=== PATIENT | male | born 1955 | race Caucasian/White ===

== ENCOUNTER 2018-09-12 23:10 | Inpatient (IN) | payer MEDICARE ==
[~2018-09-12] VITALS: Ht 185.4 cm; Wt 121.3 kg
[2018-09-12] MEDS ORDERED: IV NORMAL SALINE 1,000ML 1,000 ML IV SCH (23:30)
[2018-09-12] MEDS ORDERED: ONDANSETRON PF 4 MG/2 ML VIAL. IV ONE (23:30)
[2018-09-13] MEDS ORDERED: atenolol (00:53)
[2018-09-13] MEDS ORDERED: glyburide (00:53)
[2018-09-13] MEDS ORDERED: multivitamin (00:53)
[2018-09-13] MEDS ORDERED: allopurinol (00:53)
[2018-09-13] MEDS ORDERED: trulicity (00:53)
[2018-09-13] MEDS ORDERED: metformin (00:53)
[2018-09-13] MEDS ORDERED: vitamin D3 (00:53)
[2018-09-13] MEDS ORDERED: Jardiance (00:53)
[2018-09-13] MEDS ORDERED: aspirin (00:53)
[2018-09-13] MEDS ORDERED: fish oil (00:53)
[2018-09-13] MEDS ORDERED: [UNRECOGNIZED DRUG - OTHER] (00:53)
[2018-09-13] MEDS: HYDROmorphone PF 1 MG/ML DISP.SYRIN IV/SQ PRN ×3 (01:10→02:45)
[2018-09-13 01:13] LABS: BASO % 0 % (0-3); EOS # 0.1 x10^3/uL (0.0-0.7); EOS % 1 % (0-3); HEMATOCRIT 50.4 % (39.0-53.0); HEMOGLOBIN 16.5 g/dL (13.0-17.5); LYMPH # 1.6 x10^3/uL (1.0-4.8); LYMPH % 14 % (24-48); MEAN CORPUSCULAR HEMOGLOBIN 31 pg (25-35); MEAN CORPUSCULAR HGB CONC 33 g/dL (31-37); MEAN CORPUSCULAR VOLUME 94 fL (79-100); MONO # 0.8 x10^3/uL (0.0-1.1); MONO % 7 % (0-9); NEUT # 9.1 x10^3uL (1.8-7.7); NEUT % 79 % (31-73); PLATELET COUNT 201 x10^3/uL (140-400); RED BLOOD COUNT 5.39 x10^6/uL (4.30-5.70); RED CELL DISTRIBUTION WIDTH 16.4 % (11.5-14.5); WHITE BLOOD COUNT 11.5 x10^3/uL (4.0-11.0)
[2018-09-13] MEDS ORDERED: ONDANSETRON PF 4 MG/2 ML VIAL. IV ONE (01:15)
[2018-09-13 01:25] LABS: ALBUMIN/GLOBULIN RATIO 1.2 (1.0-1.7); CALCIUM 9.7 mg/dL (8.5-10.1); CREATININE 1.6 mg/dL (0.7-1.3); GFR 43.6; POTASSIUM 3.9 mmol/L (3.5-5.1); TOTAL BILIRUBIN 1.3 mg/dL (0.2-1.0); TOTAL PROTEIN 7.3 g/dL (6.4-8.2)
[2018-09-13] MEDS ORDERED: diphenhydrAMINE 50 MG/ML VIAL IVP ONE (02:45)
[2018-09-13] MEDS ORDERED: METOCLOPRAMIDE HCL 10 MG/2 ML VIAL. IV ONE (02:45)
[2018-09-13 03:10] LABS: BACTERIA,URINE 0 /HPF (0-FEW); BILIRUBIN,URINE NEG (NEG); CLARITY,URINE CLEAR; COLOR,URINE YELLOW; GLUCOSE,URINE >=1000 mg/dL (NEG); NITRITE,URINE NEG (NEG); RBC,URINE 0 /HPF (0-2); SQUAMOUS EPITHELIAL CELL,UR OCC /LPF; UROBILINOGEN,URINE 0.2 mg/dL (0.2 mg/dL); WBC,URINE RARE /HPF (0-4)
--- NOTE | 2018-09-13 03:32 | RAD ---
INDICATION: Abdominal pain with vomiting COMPARISON: None. TECHNIQUE: Axial CT images obtained through the abdomen and pelvis without contrast. One or more of the following individualized dose reduction techniques were utilized for this examination: 1. Automated exposure control; 2. Adjustment of the mA and/or kV according to patient size; 3. Use of iterative reconstruction technique. FINDINGS: Mild basilar airspace opacities. Coronary artery calcific atherosclerosis. Small hiatal hernia. Could also be from mild distention distal esophagus. Moderate calcific atherosclerosis. Fat-containing left inguinal hernia. Liver is low density. High density material within the gallbladder. Edema at pancreas with some adjacent free fluid. There is also wall thickening of duodenum with adjacent edema. Spleen prominent in size. No left-sided hydronephrosis. Suspected low-density lesion of the left kidney which is not well characterized on this noncontrast exam. Urinary bladder is somewhat distended at time of exam. No right-sided hydronephrosis. Small exophytic lesion suspected at right kidney measuring up to about 6 mm. Not well characterized on this noncontrast exam. Degenerative changes the spine with multilevel central canal and neural foraminal stenosis. Colonic diverticulosis. No definite periappendiceal inflammation. IMPRESSION: 1. Edema and free fluid adjacent to the pancreas which can be seen with pancreatitis. 2. There is also edema and wall thickening at the duodenum. This could be secondary to secondary inflammation from pancreatitis but superimposed duodenitis or duodenal ulcer is possible. There is free fluid adjacent to the pancreas and the duodenum. 3. Liver is low density. Nonspecific but can be seen with fatty infiltration. 4. High density material within the gallbladder which could be from stones or sludge. 5. Couple of bilateral renal lesions which are not well characterized on noncontrast imaging. Nonemergent ultrasound, CT or MRI renal protocol could better evaluate if further information is desired. Electronically signed by: Ed Tabares MD (09/13/2018 3:28 AM) [facility]
[2018-09-13] MEDS ORDERED: PIPERACILLIN/TAZOBACTAM 4.5 GM VIAL IV ONE (03:44)
[2018-09-13] MEDS ORDERED: IV NORMAL SALINE 50ML 50 ML ONE (03:44)
[2018-09-13] MEDS ORDERED: PIPERACILLIN/TAZOBACTAM 4.5 GM in IV NORMAL SALINE 50ML 50 ML IV ONE (03:45)
--- NOTE | 2018-09-13 03:45 | PHYS DOC ---
Past History Past Medical History: CAD, Diabetes, High Cholesterol, Hypertension, [place], Other Past Surgical History: Other Alcohol Use: Occasionally Drug Use: None Adult General Chief Complaint Chief Complaint: ABDOMINAL PAIN HPI HPI Patient is a 63-year-old male who presents with complaint of acute onset of upper abdominal pain that started approximately 2 hours prior to arrival. Patient rates his pain to be a 9 out of 10. He indicates that he has been naus eated with vomiting. He denies any diarrhea. Patient denies any radiation of the pain. He states that the pain is worsened with movement and palpation of his abdomen. Patient states that nothing improves his pain. He states that he has never had pain like this before.[] Review of Systems Review of Systems Constitutional: Denies fever or chills [] Respiratory: Denies cough or shortness of breath [] Cardiovascular: No additional information not addressed in HPI [] GI: Complains of upper abdominal pain with nausea and vomiting. Denies diarrhea [] Musculoskeletal: Denies back pain or joint pain [] Neurologic: Denies headache, focal weakness or sensory changes [] All other systems were reviewed and found to be within normal limits, except as documented in this note. Current Medications Current Medications Current Medications Medications (Trade) Dose Ordered Sig/Brody Start Time Stop Time Status Last Admin Dose Admin Diphenhydramine HCl (Benadryl) 25 mg 1X ONCE 09/13/18 02:45 09/13/18 03:33 DC 09/13/18 02:52 25 MG Hydromorphone HCl (Dilaudid) 0.5 mg PRN Q15MIN PRN 09/12/18 23:30 09/13/18 23:29 09/13/18 02:45 0.5 MG Metoclopramide HCl (Reglan Vial) 10 mg 1X ONCE 09/13/18 02:45 09/13/18 03:33 DC 09/13/18 02:44 10 MG Ondansetron HCl (Zofran) 4 mg 1X ONCE 09/13/18 01:15 09/13/18 01:42 DC 09/13/18 01:09 4 MG Piperacillin Sod/ Tazobactam Sod 4.5 gm/Sodium Chloride 50 ml @ 100 mls/hr 1X ONCE 09/13/18 03:45 09/13/18 04:14 UNV Sodium Chloride 1,000 ml @ 1,000 mls/hr Q1H 09/12/18 23:30 09/13/18 00:43 DC 09/13/18 00:00 1,000 MLS/HR Allergies Allergies Allergies Coded Allergies Type Severity Reaction Last Updated Verified No Known Drug Allergies 09/13/18 No Physical Exam Physical Exam Constitutional: Well developed, well nourished, in mild distress, non-toxic appearance. [] HENT: Normocephalic, atraumatic, bilateral external ears normal, oropharynx moist, no oral exudates, nose normal. [] Eyes: PERRLA, EOMI, conjunctiva normal, no discharge. [] Neck: Normal range of motion, no tenderness, supple, no stridor. [] Cardiovascular:Heart rate regular rhythm, no murmur [] Lungs & Thorax: Bilateral breath sounds clear to auscultation [] Abdomen: Bowel sounds normal, soft, with significant upper abdominal tenderness. [] Skin: Warm, dry, no erythema, no rash. [] Extremities: No tenderness, no cyanosis, no clubbing, ROM intact. [] Neurologic: Alert and oriented X 3, no focal deficits noted. [] Current Patient Data Vital Signs Vital Signs Date Time Temp Pulse Resp B/P (MAP) Pulse Ox O2 Delivery O2 Flow Rate FiO2 09/12/18 23:15 97.9 93 22 94 Room Air Lab Results Laboratory Tests Test 09/12/18 23:55 09/13/18 02:40 White Blood Count 11.5 x10^3/uL (4.0-11.0) H Red Blood Count 5.39 x10^6/uL (4.30-5.70) Hemoglobin 16.5 g/dL (13.0-17.5) Hematocrit 50.4 % (39.0-53.0) Mean Corpuscular Volume 94 fL (79-100) Mean Corpuscular Hemoglobin 31 pg (25-35) Mean Corpuscular Hemoglobin Concent 33 g/dL (31-37) Red Cell Distribution Width 16.4 % (11.5-14.5) H Platelet Count 201 x10^3/uL (140-400) Neutrophils (%) (Auto) 79 % (31-73) H Lymphocytes (%) (Auto) 14 % (24-48) L Monocytes (%) (Auto) 7 % (0-9) Eosinophils (%) (Auto) 1 % (0-3) Basophils (%) (Auto) 0 % (0-3) Neutrophils # (Auto) 9.1 x10^3uL (1.8-7.7) H Lymphocytes # (Auto) 1.6 x10^3/uL (1.0-4.8) Monocytes # (Auto) 0.8 x10^3/uL (0.0-1.1) Eosinophils # (Auto) 0.1 x10^3/uL (0.0-0.7) Basophils # (Auto) 0.0 x10^3/uL (0.0-0.2) Sodium Level 142 mmol/L (136-145) Potassium Level 3.9 mmol/L (3.5-5.1) Chloride Level 103 mmol/L (98-107) Carbon Dioxide Level 28 mmol/L (21-32) Anion Gap 11 (6-14) Blood Urea Nitrogen 28 mg/dL (8-26) H Creatinine 1.6 mg/dL (0.7-1.3) H Estimated GFR (Cockcroft-Gault) 43.6 BUN/Creatinine Ratio 18 (6-20) Glucose Level 187 mg/dL (70-99) H Calcium Level 9.7 mg/dL (8.5-10.1) Total Bilirubin 1.3 mg/dL (0.2-1.0) H Aspartate Amino Transferase (AST) 364 U/L (15-37) H Alanine Aminotransferase (ALT) 227 U/L (16-63) H Alkaline Phosphatase 72 U/L (46-116) Troponin I Quantitative < 0.017 ng/mL (0-0.055) Total Protein 7.3 g/dL (6.4-8.2) Albumin 4.0 g/dL (3.4-5.0) Albumin/Globulin Ratio 1.2 (1.0-1.7) Lipase 49951 U/L (73-393) H Urine Collection Type Void Urine Color Yellow Urine Clarity Clear Urine pH 5.0 Urine Specific [place] 1.010 Urine Protein Neg (NEG-TRACE) Urine Glucose (UA) >=1000 mg/dL (NEG) Urine Ketones (Stick) Neg mg/dL (NEG) Urine Blood Neg (NEG) Urine Nitrite Neg (NEG) Urine Bilirubin Neg (NEG) Urine Urobilinogen Dipstick 0.2 mg/dL (0.2 mg/dL) Urine Leukocyte Esterase Neg (NEG) Urine RBC 0 /HPF (0-2) Urine WBC Rare /HPF (0-4) Urine Squamous Epithelial Cells Occ /LPF Urine Bacteria 0 /HPF (0-FEW) EKG EKG [] Radiology/Procedures Radiology/Procedures [] Impressions: PROCEDURE: CT ABDOMEN PELVIS WO CONTRAST INDICATION: Abdominal pain with vomiting COMPARISON: None. TECHNIQUE: Axial CT images obtained through the abdomen and pelvis without contrast. One or more of the following individualized dose reduction techniques were utilized for this examination: 1. Automated exposure control; 2. Adjustment of the mA and/or kV according to patient size; 3. Use of iterative reconstruction technique. FINDINGS: Mild basilar airspace opacities. Coronary artery calcific atherosclerosis. Small hiatal hernia. Could also be from mild distention distal esophagus. Moderate calcific atherosclerosis. Fat-containing left inguinal hernia. Liver is low density. High density material within the gallbladder. Edema at pancreas with some adjacent free fluid. There is also wall thickening of duodenum with adjacent edema. Spleen prominent in size. No left-sided hydronephrosis. Suspected low-density lesion of the left kidney which is not well characterized on this noncontrast exam. Urinary bladder is somewhat distended at time of exam. No right-sided hydronephrosis. Small exophytic lesion suspected at right kidney measuring up to about 6 mm. Not well characterized on this noncontrast exam. Degenerative changes the spine with multilevel central canal and neural foraminal stenosis. Colonic diverticulosis. No definite periappendiceal inflammation. IMPRESSION: 1. Edema and free fluid adjacent to the pancreas which can be seen with pancreatitis. 2. There is also edema and wall thickening at the duodenum. This could be secondary to secondary inflammation from pancreatitis but superimposed duodenitis or duodenal ulcer is possible. There is free fluid adjacent to the pancreas and the duodenum. 3. Liver is low density. Nonspecific but can be seen with fatty infiltration. 4. High density material within the gallbladder which could be from stones or sludge. 5. Couple of bilateral renal lesions which are not well characterized on noncontrast imaging. Nonemergent ultrasound, CT or MRI renal protocol could better evaluate if further information is desired. Electronically signed by: Ed Tabares MD (09/13/2018 3:28 AM) [facility] Course & Med Decision Making Course & Med Decision Making Pertinent Labs and Imaging studies reviewed. (See chart for details) [] Dragon Disclaimer Dragon Disclaimer This electronic medical record was generated, in whole or in part, using a voice recognition dictation system. Departure Departure: Impression: Primary Impression: Acute pancreatitis Disposition: ADMITTED INPATIENT Admitting Physician: Nick Escobedo Condition: IMPROVED Referrals: SHAHIDA LANG MD (PCP) Problem Qualifiers Primary Impression: Acute pancreatitis Pancreatitis type: unspecified pancreatitis type Acute pancreatitis complication: unspecified Qualified Codes: K85.90 - Acute pancreatitis without necrosis or infection, unspecified NATHALIE STONE Jr. DO Sep 13, 2018 03:45
[2018-09-13] MEDS: IV NORMAL SALINE 1,000ML 1,000 ML IV SCH ×3 (05:00→18:18)
[2018-09-13 05:11] VITALS: BP 131/78
[2018-09-13] MEDS ORDERED: FENO160T PO (05:38)
[2018-09-13] MEDS ORDERED: ATEN50TA PO (05:38)
[2018-09-13] MEDS ORDERED: ATOR10TA60 PO (05:38)
[2018-09-13] MEDS ORDERED: OMEP40CA5 PO (05:38)
[2018-09-13] MEDS ORDERED: EMPA10TA PO (05:38)
[2018-09-13] MEDS ORDERED: DULA1.5P SQ (05:38)
[2018-09-13] MEDS ORDERED: GLIM2TAB2 PO (05:38)
[2018-09-13] MEDS ORDERED: ASPI-630 PO (05:38)
[2018-09-13] MEDS ORDERED: ALLO300T (05:38)
[2018-09-13] MEDS ORDERED: METF500T9 PO (05:38)
[2018-09-13] MEDS: HYDROmorphone PF 1 MG/ML DISP.SYRIN IV PRN ×5 (06:20→19:39)
--- NOTE | 2018-09-13 06:30 | EKG ---
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
[2018-09-13 06:41] LABS: BASO % 0 % (0-3); EOS % 0 % (0-3); HEMOGLOBIN 15.9 g/dL (13.0-17.5); LYMPH # 0.4 x10^3/uL (1.0-4.8); LYMPH % 4 % (24-48); MEAN CORPUSCULAR HEMOGLOBIN 31 pg (25-35); MEAN CORPUSCULAR HGB CONC 33 g/dL (31-37); MEAN CORPUSCULAR VOLUME 93 fL (79-100); MONO # 0.6 x10^3/uL (0.0-1.1); MONO % 6 % (0-9); NEUT # 9.2 x10^3uL (1.8-7.7); NEUT % 90 % (31-73); PLATELET COUNT 176 x10^3/uL (140-400); RED BLOOD COUNT 5.16 x10^6/uL (4.30-5.70); RED CELL DISTRIBUTION WIDTH 15.9 % (11.5-14.5); WHITE BLOOD COUNT 10.3 x10^3/uL (4.0-11.0)
[2018-09-13 06:46] LABS: ALBUMIN 3.7 g/dL (3.4-5.0); ALBUMIN/GLOBULIN RATIO 1.3 (1.0-1.7); CALCIUM 8.7 mg/dL (8.5-10.1); CREATININE 1.6 mg/dL (0.7-1.3); GFR 43.6; POTASSIUM 4.9 mmol/L (3.5-5.1); TOTAL BILIRUBIN 1.1 mg/dL (0.2-1.0); TOTAL PROTEIN 6.5 g/dL (6.4-8.2)
[2018-09-13] MEDS: ONDANSETRON PF 4 MG/2 ML VIAL. IV PRN ×2 (10:10→15:48)
--- NOTE | 2018-09-13 12:32 | RAD ---
EXAM: ABDOMINAL ULTRASOUND. HISTORY: Pancreatitis. COMPARISON: CT 09/13/2018. FINDINGS: Sonographic evaluation of the abdomen was performed. The liver is enlarged. Diffuse hepatic steatosis is moderate to severe. No focal lesions are seen. The spleen measures 16.7 cm. Small gallstones noted on CT are not well seen. There is no pericholecystic fluid or gallbladder wall thickening. A 4 mm polyp is likely benign at this small size. There is no sonographic Esteban sign. The common duct measures 5 mm. The pancreas is not well visualized. No surrounding fluid collection is identified. The right kidney measures 11.1 cm. Cortical thickness and echogenicity are preserved. There is no hydronephrosis. The left kidney measures 11.9 cm. Cortical thickness and echogenicity are preserved. There is no hydronephrosis. A hypoechoic nodule medially in measures 2.0 x 1.6 cm. A cyst at the upper pole measures 1.2 x 0.6 cm. Another in the interpolar region measures 1.3 x 1.0 cm. The visualized portions of the abdominal aorta and inferior vena cava are grossly patent and normal in caliber. IMPRESSION: 1. The pancreas is not well visualized. No surrounding fluid collection is identified. 2. Cholelithiasis is not well seen sonographically. No biliary dilatation. 3. Diffuse hepatic steatosis. 4. Moderate splenomegaly. Electronically signed by: Bigg Pollock MD (09/13/2018 12:29 PM) [facility]
[2018-09-13 13:05] VITALS: BP 125/82
[2018-09-13] MEDS: METOCLOPRAMIDE HCL 10 MG/2 ML VIAL. IV SCH ×2 (13:13→18:22)
[2018-09-13] MEDS: PIPERACILLIN/TAZOBACTAM 2.25 GM in IV NORMAL SALINE 50ML 50 ML IV SCH ×2 (15:45→22:05)
[2018-09-13 16:34] VITALS: BP 137/85
--- NOTE | 2018-09-13 17:29 | HP ---
ADMIT DATE: 09/13/2018 HISTORY OF PRESENT ILLNESS: The patient is a 63-year-old male patient, who came to the Emergency Room of [facility] complaining of abdominal that started acutely in the epigastric area, started approximately 2 hours prior to arrival. The patient rated his pain to be 9/10, indicated that has been nauseous and vomiting. He denied any diarrhea. Denied any radiation of the pain. He states that the pain is worsened with movement and palpation of his abdomen and nothing has improved his pain. He has never had symptoms like this before. He was extensively investigated in the Emergency Room and was found to have markedly elevated lipase. He has had a CT scan of the abdomen, which showed edema and free fluid adjacent to the pancreas, which can be seen with pancreatitis. There is also edema and wall thickening of the duodenum. This could be secondary to inflammation from pancreatitis, but superimposed duodenitis and duodenal ulcer is possible, there is free fluid adjacent to the pancreas and duodenum. Liver is low density, nonspecific, can be seen with fatty infiltration, high density material within the gallbladder, which could be from stones or sludge, a couple of bilateral renal lesions, which are not well characterized on noncontrast imaging. Nonemergent ultrasound, CT or MRI, renal protocol could later evaluate if further information is desired. His laboratory work showed that he has mild leukocytosis and his serum lipase was 50,790. His BUN is 28, creatinine 1.6, and his total bilirubin, AST and ALT are elevated, although his alkaline phosphatase is normal. His urinalysis showed marked glucosuria, but otherwise unremarkable. The patient was admitted with acute pancreatitis, started on IV fluid, n.p.o. and pain medication as well as antiemetic. When questioned the patient further, he stated that he ate [employer] and drank one can of beer. PAST MEDICAL HISTORY: Significant for type 2 diabetes mellitus, hypertension, hyperlipidemia, coronary artery disease, status post stent deployment about 10 years ago. He is known to have atrial fibrillation, chronic kidney disease, fatty liver, diverticulosis, history of DVT, and pulmonary emboli as well as gout. He is also known to have obstructive sleep apnea, on CPAP. PAST SURGICAL HISTORY: Significant for bilateral total knee arthroplasty, periumbilical hernia repair, right inguinal hernia repair, right eye cataract extraction. He underwent also esophagogastroduodenoscopy and colonoscopy. ALLERGIES: He has no known drug allergies. MEDICATIONS: He is currently on fenofibrate 160 mg daily, atorvastatin calcium 10 mg at bedtime, atenolol 50 mg twice a day, aspirin 81 mg once a day, proton pump inhibitor, omeprazole 40 mg daily, metformin 500 mg 4 times a day, Trulicity 1.5 mg subcu once a week, Jardiance 10 mg daily, glimepiride 2 mg twice a day, allopurinol 300 mg once a day. FAMILY HISTORY: He has 2 brothers, 1 older for the kidney and pancreas transplant list. His younger brother has atrial fibrillation. One sister, younger and has COPD. His father at the age of 73 secondary to sepsis. He has end-stage renal failure and was on hemodialysis. His mother is still alive at age of 87 and has Alzheimer's disease. SOCIAL HISTORY: He is , has adult daughter and a son. He quit smoking when he was 38 years old, about 25 years ago. He drinks 1 beer every other week according to him. 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 REVIEW OF SYSTEMS: The patient denied any blurring of vision, cataract, glaucoma or macular degeneration. Denied any earache, tinnitus or sensorineural deafness. Denied any nosebleeds, stuffy nose or postnasal drip. Denied any sore throat, sore tongue, toothache, hoarseness of voice or difficulty swallowing. Did complain obviously of nausea, vomiting, but denied any diarrhea or constipation. Denied any hematemesis, melena or hematochezia. Denied any dysuria, frequency or hematuria. Denied any nocturia. Denied any chest pain, shortness of breath, orthopnea, paroxysmal nocturnal dyspnea. Denied any cough, phlegm or hemoptysis. Denied any chills, rigors, or fever. Denied any dizziness, lightheadedness, or vertigo. PHYSICAL EXAMINATION: GENERAL: On arrival to the Emergency Room, the patient was obviously in pain, but there was no pallor, jaundice, cyanosis, or thyromegaly. No jugular venous distension. No lower limb edema. VITAL SIGNS: His heart rate was 93, blood pressure was 140/87, temperature was 97.9, respiratory rate 22, and oxygen saturation was 94%. HEAD, EYES, EARS, NOSE, AND THROAT: Showed normocephalic, atraumatic. NECK: Supple. HEART: Showed normal first and second heart sounds. No gallop, rub or murmur. CHEST: Clear to auscultation. No crepitation or rhonchi. ABDOMEN: Distended, soft, nontender. No guarding or rigidity. No organomegaly. All hernial orifices intact. Bowel sounds normal. He has marked tenderness mostly in the epigastric and right upper quadrant, but there is no guarding or rigidity. No organomegaly. All hernial orifices intact. Bowel sounds normal. NEUROLOGIC: He is awake, alert, responding appropriately. All his cranial nerves are intact. He moves extremities without difficulty. LABORATORY DATA: His lab work showed that his white cell count was 11,500, hemoglobin 16.5, hematocrit 50, MCV 94 and platelet count of 201,000. His serum sodium is 142, potassium 3.9, chloride 103, bicarbonate 28, anion gap of 11, BUN 28, creatinine 1.6. Estimated GFR was 43 mL per minute, his glucose 187, calcium was 9.7. Total bilirubin, AST, ALT elevated. Alkaline phosphatase was normal. His total protein was 7.3, albumin 4. Lipase was 50,790. We did repeat his lab work this morning and it showed his bilirubin is slightly down at 1.1. His AST and ALT are trending down. His lipase was 11,190. Urinalysis showed the urine was yellow, clear with a pH of 5, specific gravity of 1.010. The urine was negative for protein. There was large amount of glucose, negative for ketones, blood, nitrite and leukocyte esterase. There are no rbc's, no wbc's, and no bacteria. IMPRESSION: In summary, this is a 63-year-old male with acute pancreatitis without any evidence of any acute cholecystitis or cholelithiasis. The potential causes include his fenofibrate, Trulicity and obviously alcohol. The pattern is more consistent with alcohol-induced hepatitis and pancreatitis as alkaline phosphatase is not elevated and in case his pancreatitis is settling down and apparently, his pain is well controlled, we will continue with the n.p.o. status, IV fluid, IV pain medication, and antiemetic. We will repeat all his lab work tonight and tomorrow morning and once this pancreatitis settles down, I will start him on clear liquid diet. Given his impaired kidney function, I will continue with Zosyn, but I will cut the dose to 2.25 g 3 times a day. AGUILA LAM MD DR: WILL/jenny JOB#: [id number] / [id number]
[2018-09-13 19:09] LABS: CALCIUM 7.9 mg/dL (8.5-10.1); CREATININE 1.7 mg/dL (0.7-1.3); GFR 40.7; POTASSIUM 4.1 mmol/L (3.5-5.1)
[2018-09-13 19:32] VITALS: BP 124/77
[2018-09-13 23:39] VITALS: BP 148/90
[2018-09-14] MEDS: IV NORMAL SALINE 1,000ML 1,000 ML IV SCH
[2018-09-14] MEDS: HYDROmorphone PF 1 MG/ML DISP.SYRIN IV PRN ×5 (00:07→22:36)
[2018-09-14] MEDS: METOCLOPRAMIDE HCL 10 MG/2 ML VIAL. IV SCH ×4 (00:07→17:26)
[2018-09-14] MEDS: PIPERACILLIN/TAZOBACTAM 2.25 GM in IV NORMAL SALINE 50ML 50 ML IV SCH ×3 (06:11→22:35)
[2018-09-14 06:17] VITALS: BP 141/87
[2018-09-14 06:33] LABS: HEMATOCRIT 47.4 % (39.0-53.0); HEMOGLOBIN 15.6 g/dL (13.0-17.5); RED BLOOD COUNT 5.06 x10^6/uL (4.30-5.70); RED CELL DISTRIBUTION WIDTH 16.4 % (11.5-14.5); WHITE BLOOD COUNT 12.7 x10^3/uL (4.0-11.0)
[2018-09-14 06:44] LABS: ALBUMIN 2.9 g/dL (3.4-5.0); ALBUMIN/GLOBULIN RATIO 0.9 (1.0-1.7); CALCIUM 7.3 mg/dL (8.5-10.1); CREATININE 1.9 mg/dL (0.7-1.3); GFR 35.8; POTASSIUM 4.1 mmol/L (3.5-5.1); TOTAL BILIRUBIN 1.1 mg/dL (0.2-1.0)
[2018-09-14] MEDS ORDERED: DEXTROSE 50% 25 GM / 50ML DISP.SYRIN. IV PRN ×2 (09:15→13:00)
[2018-09-14 11:55] VITALS: BP 135/83
[2018-09-14] MEDS ORDERED: INSULIN LISPRO 300 UNITS/3 ML INSULN.PEN. SQ SCH (12:00)
[2018-09-14] MEDS ORDERED: POTASSIUM CL 20MEQ D5-0.2%NACL 1,000 ML IV SCH (13:00)
[2018-09-14] MEDS: IV DEXTROSE 5 %-0.2 % NACL 1,000 ML IV SCH (13:24)
[2018-09-14 15:53] VITALS: BP 138/80
[2018-09-14] MEDS: ONDANSETRON PF 4 MG/2 ML VIAL. IV PRN (15:59)
[2018-09-14] MEDS: INSULIN LISPRO 300 UNITS/3 ML INSULN.PEN. SQ SCH (17:00)
[2018-09-14 18:58] LABS: ALBUMIN 2.8 g/dL (3.4-5.0); ALBUMIN/GLOBULIN RATIO 0.9 (1.0-1.7); CALCIUM 7.1 mg/dL (8.5-10.1); CREATININE 1.7 mg/dL (0.7-1.3); GFR 40.7; POTASSIUM 3.7 mmol/L (3.5-5.1)
[2018-09-14 19:50] VITALS: BP 143/88
[2018-09-14] MEDS: LACTOBACILLUS RHAMNOSUS GG 1 CAPSULE. PO SCH (21:00)
--- NOTE | 2018-09-14 23:02 | PN ---
DATE: 09/14/2018 HISTORY OF PRESENT ILLNESS: The patient resting slightly propped up in bed, in no apparent distress. He had no pain and he took his last Dilaudid injection about 12 hours ago. We did start him on a clear liquid diet; however, when I saw him, he felt bloated. When I examined him, he looked well and was clearly in no apparent respiratory distress. No pallor, jaundice or cyanosis. No lymphadenopathy, no thyromegaly. No jugular venous distension. No lower limb edema. PHYSICAL EXAMINATION: VITAL SIGNS: His heart rate was 110, blood pressure was 141/87, temperature was 97.6, respiratory rate 20, and oxygen saturation was 90% on 2 liters of oxygen by nasal cannula. HEAD, EYES, EARS, NOSE AND THROAT: Showed normocephalic, atraumatic. NECK: Supple. HEART: Showed normal first and second heart sounds. No gallop, rub or murmur. CHEST: Clear to auscultation. No crepitation or rhonchi. ABDOMEN: Distended, soft, nontender. There is no guarding or rigidity. No organomegaly. All hernial orifice intact. Bowel sounds normal. NEUROLOGIC: He is awake, alert, responding appropriately. All his cranial nerves are intact. He moves extremities without difficulty. His intake was 1015, no output was recorded. LABORATORY DATA: As of this morning showed that his serum sodium was 146, potassium 4.1, chloride 110, bicarbonate 24, anion gap of 12, BUN 28, creatinine 1.9, estimated GFR was 36 mL per minute. His glucose was 116, calcium was 7.3. Total bilirubin, AST and ALT are slightly elevated, but trending down. Alkaline phosphatase normal. Total protein was 6, albumin 2.9. His lipase was 1316. His white cell count was 12,700, hemoglobin 15.6, hematocrit 47, MCV 94 and platelet count of 179,000. Urinalysis was unremarkable. ASSESSMENT: 1. Acute pancreatitis without any evidence of acute cholecystitis or cholelithiasis. 2. Potential cause for his acute pancreatitis is fenofibrate and Trulicity that he is already on and obviously alcohol. Other issues include hypernatremia, serum sodium up to 146, acute kidney injury. His creatinine is up from 1.7-1.9. Obviously, his blood sugar is suboptimally controlled. 3. Leukocytosis with white cell count worsening up to 12.7. PLAN: My plan is to change the IV fluid to D5 quarter saline with 20 mEq of potassium chloride. We will start him on insulin sliding scale high dose and continue with pain management. We will repeat his labs and we will monitor his lab works closely and if there is any evidence of worsening, we might have to transfer him to another [facility] center. AGUILA LAM MD DR: WILL/nts JOB#: [id number] / [id number]
[2018-09-14 23:40] VITALS: BP 145/89
[2018-09-15] MEDS: METOCLOPRAMIDE HCL 10 MG/2 ML VIAL. IV SCH ×4 (00:38→17:01)
[2018-09-15] MEDS: IV DEXTROSE 5 %-0.2 % NACL 1,000 ML IV SCH ×3 (02:45→19:00)
[2018-09-15] MEDS: HYDROmorphone PF 1 MG/ML DISP.SYRIN IV PRN ×8 (02:45→22:16)
[2018-09-15 05:24] VITALS: BP 138/89
[2018-09-15] MEDS: PIPERACILLIN/TAZOBACTAM 2.25 GM in IV NORMAL SALINE 50ML 50 ML IV SCH ×3 (05:53→22:22)
[2018-09-15] MEDS: INSULIN LISPRO 300 UNITS/3 ML INSULN.PEN. SQ SCH ×3 (08:35→17:00)
[2018-09-15] MEDS: LACTOBACILLUS RHAMNOSUS GG 1 CAPSULE. PO SCH ×2 (08:36→22:21)
[2018-09-15 11:42] VITALS: BP 137/84
--- NOTE | 2018-09-15 12:30 | PDOC ---
SUBJECTIVE: Diffuse Abdominal pain Still symptomatic Not hungry Afraid to eat. OBJECTIVE: Problems: Problems Medical Problems: (1) Acute pancreatitis Status: Acute Vital Signs: Vital Signs Date Time Temp Pulse Resp B/P (MAP) Pulse Ox O2 Delivery O2 Flow Rate FiO2 09/15/18 11:42 98.0 111 20 137/84 (101) 91 BiPAP/CPAP 09/14/18 08:00 2.0 I & O Intake and Output 09/15/18 07:00 Intake Total 2830 ml Output Total 3 ml Balance 2827 ml Intake Oral 840 ml IV Total 1990 ml Output Urine Total 3 ml # Voids 1 Labs: Laboratory Tests Test 09/13/18 16:58 09/13/18 18:25 09/13/18 21:33 09/14/18 06:09 Glucose (Fingerstick) 223 mg/dL (70-99) 200 mg/dL (70-99) Sodium Level 144 mmol/L (136-145) 146 mmol/L (136-145) Potassium Level 4.1 mmol/L (3.5-5.1) 4.1 mmol/L (3.5-5.1) Chloride Level 109 mmol/L (98-107) 110 mmol/L (98-107) Carbon Dioxide Level 24 mmol/L (21-32) 24 mmol/L (21-32) Anion Gap 11 (6-14) 12 (6-14) Blood Urea Nitrogen 29 mg/dL (8-26) 28 mg/dL (8-26) Creatinine 1.7 mg/dL (0.7-1.3) 1.9 mg/dL (0.7-1.3) Estimated GFR (Cockcroft-Gault) 40.7 35.8 Glucose Level 205 mg/dL (70-99) 216 mg/dL (70-99) Calcium Level 7.9 mg/dL (8.5-10.1) 7.3 mg/dL (8.5-10.1) Lipase 3610 U/L (73-393) 1316 U/L (73-393) White Blood Count 12.7 x10^3/uL (4.0-11.0) Red Blood Count 5.06 x10^6/uL (4.30-5.70) Hemoglobin 15.6 g/dL (13.0-17.5) Hematocrit 47.4 % (39.0-53.0) Mean Corpuscular Volume 94 fL (79-100) Mean Corpuscular Hemoglobin 31 pg (25-35) Mean Corpuscular Hemoglobin Concent 33 g/dL (31-37) Red Cell Distribution Width 16.4 % (11.5-14.5) Platelet Count 176 x10^3/uL (140-400) BUN/Creatinine Ratio 15 (6-20) Total Bilirubin 1.1 mg/dL (0.2-1.0) Aspartate Amino Transf (AST/SGOT) 52 U/L (15-37) Alanine Aminotransferase (ALT/SGPT) 124 U/L (16-63) Alkaline Phosphatase 50 U/L (46-116) Total Protein 6.0 g/dL (6.4-8.2) Albumin 2.9 g/dL (3.4-5.0) Albumin/Globulin Ratio 0.9 (1.0-1.7) Triglycerides Level 133 mg/dL (0-150) Cholesterol Level 111 mg/dL (0-200) LDL Cholesterol, Calculated 62 mg/dL (0-100) VLDL Cholesterol, Calculated 26 mg/dL (0-40) Non-HDL Cholesterol Calculated 88 mg/dL (0-129) HDL Cholesterol 23 mg/dL (40-60) Cholesterol/HDL Ratio 4.0 Test 09/14/18 07:45 09/14/18 11:07 09/14/18 17:07 09/14/18 18:25 Glucose (Fingerstick) 241 mg/dL (70-99) 242 mg/dL (70-99) 193 mg/dL (70-99) Sodium Level 141 mmol/L (136-145) Potassium Level 3.7 mmol/L (3.5-5.1) Chloride Level 106 mmol/L (98-107) Carbon Dioxide Level 25 mmol/L (21-32) Anion Gap 10 (6-14) Blood Urea Nitrogen 26 mg/dL (8-26) Creatinine 1.7 mg/dL (0.7-1.3) Estimated GFR (Cockcroft-Gault) 40.7 BUN/Creatinine Ratio 15 (6-20) Glucose Level 161 mg/dL (70-99) Calcium Level 7.1 mg/dL (8.5-10.1) Total Bilirubin 1.0 mg/dL (0.2-1.0) Aspartate Amino Transf (AST/SGOT) 37 U/L (15-37) Alanine Aminotransferase (ALT/SGPT) 92 U/L (16-63) Alkaline Phosphatase 49 U/L (46-116) Total Protein 6.0 g/dL (6.4-8.2) Albumin 2.8 g/dL (3.4-5.0) Albumin/Globulin Ratio 0.9 (1.0-1.7) Lipase 624 U/L (73-393) Test 09/14/18 20:16 09/15/18 07:30 Glucose (Fingerstick) 140 mg/dL (70-99) 201 mg/dL (70-99) Physical Exam: HEENT: PERRLA no icterus Neck: Supple Lungs: Shallow respirations CV: RRR Abd: Distended, tympanitic. Moderate guarding, no rebound tenderness Ext: Trace edema Neuro Alert ASSESSMENT: Acute Pancreatitis Symptomatic Pain DMII Obesity Fatty liver PLAN: Conservative therapy IV hydration Pain and nausea control serial chems clear liquids as tolerated JASMYN RAMIREZ MD Sep 15, 2018 12:30
[2018-09-15 15:26] VITALS: BP 155/85
[2018-09-15 19:33] VITALS: BP 142/79
[2018-09-15 23:22] VITALS: BP 147/82
[2018-09-16] MEDS: METOCLOPRAMIDE HCL 10 MG/2 ML VIAL. IV SCH ×4 (00:35→17:04)
[2018-09-16] MEDS: HYDROmorphone PF 1 MG/ML DISP.SYRIN IV PRN ×11 (00:36→22:55)
[2018-09-16] MEDS: IV DEXTROSE 5 %-0.2 % NACL 1,000 ML IV SCH ×2 (05:08→15:00)
[2018-09-16 05:27] VITALS: BP 160/83
[2018-09-16] MEDS: PIPERACILLIN/TAZOBACTAM 2.25 GM in IV NORMAL SALINE 50ML 50 ML IV SCH ×3 (06:15→21:58)
[2018-09-16] MEDS: INSULIN LISPRO 300 UNITS/3 ML INSULN.PEN. SQ SCH ×3 (08:25→17:09)
[2018-09-16] MEDS: LACTOBACILLUS RHAMNOSUS GG 1 CAPSULE. PO SCH ×2 (09:00→20:45)
--- NOTE | 2018-09-16 09:25 | PDOC ---
SUBJECTIVE: CC: Abdominal pain Gaseous distention Nausea and pain controlled Labs pending Tolerated applesauce, kept it down. OBJECTIVE: Problems: Problems Medical Problems: (1) Acute pancreatitis Status: Acute AM labs pending Vital Signs: Vital Signs Date Time Temp Pulse Resp B/P (MAP) Pulse Ox O2 Delivery O2 Flow Rate FiO2 09/16/18 07:56 18 92 Room Air 2.0 09/16/18 05:27 97.7 111 160/83 (108) I & O Intake and Output 09/16/18 07:00 Intake Total 760 ml Balance 760 ml Intake Oral 760 ml # Voids 2 Labs: Laboratory Tests Test 09/14/18 11:07 09/14/18 17:07 09/14/18 18:25 09/14/18 20:16 Glucose (Fingerstick) 242 mg/dL (70-99) 193 mg/dL (70-99) 140 mg/dL (70-99) Sodium Level 141 mmol/L (136-145) Potassium Level 3.7 mmol/L (3.5-5.1) Chloride Level 106 mmol/L (98-107) Carbon Dioxide Level 25 mmol/L (21-32) Anion Gap 10 (6-14) Blood Urea Nitrogen 26 mg/dL (8-26) Creatinine 1.7 mg/dL (0.7-1.3) Estimated GFR (Cockcroft-Gault) 40.7 BUN/Creatinine Ratio 15 (6-20) Glucose Level 161 mg/dL (70-99) Calcium Level 7.1 mg/dL (8.5-10.1) Total Bilirubin 1.0 mg/dL (0.2-1.0) Aspartate Amino Transf (AST/SGOT) 37 U/L (15-37) Alanine Aminotransferase (ALT/SGPT) 92 U/L (16-63) Alkaline Phosphatase 49 U/L (46-116) Total Protein 6.0 g/dL (6.4-8.2) Albumin 2.8 g/dL (3.4-5.0) Albumin/Globulin Ratio 0.9 (1.0-1.7) Lipase 624 U/L (73-393) Test 09/15/18 07:30 09/15/18 11:52 09/15/18 16:52 09/15/18 20:39 Glucose (Fingerstick) 201 mg/dL (70-99) 169 mg/dL (70-99) 172 mg/dL (70-99) 165 mg/dL (70-99) Physical Exam: HEENT: PERRLA Neck: supple Chest shallow respirations CV: RRR, no gallops Abdom: distended, Tympanitic. Few scatterred bowel sounds Ext: Trace edema Neuro: alert, no focal deficits ASSESSMENT: Acute pancreatitis Ileus Gaseous distension Cholelithiasis PLAN: Try small feedings IV hydration Simethicone Serial chemistries Pain and nausea control JASMYN RAMIREZ MD Sep 16, 2018 09:25
[2018-09-16 09:40] LABS: BASO % 0 % (0-3); EOS % 0 % (0-3); HEMATOCRIT 38.9 % (39.0-53.0); HEMOGLOBIN 12.9 g/dL (13.0-17.5); LYMPH # 0.6 x10^3/uL (1.0-4.8); LYMPH % 8 % (24-48); MEAN CORPUSCULAR HEMOGLOBIN 31 pg (25-35); MEAN CORPUSCULAR HGB CONC 33 g/dL (31-37); MEAN CORPUSCULAR VOLUME 94 fL (79-100); MONO # 0.7 x10^3/uL (0.0-1.1); MONO % 8 % (0-9); NEUT # 7.1 x10^3uL (1.8-7.7); NEUT % 84 % (31-73); PLATELET COUNT 127 x10^3/uL (140-400); RED BLOOD COUNT 4.15 x10^6/uL (4.30-5.70); RED CELL DISTRIBUTION WIDTH 16.2 % (11.5-14.5); WHITE BLOOD COUNT 8.5 x10^3/uL (4.0-11.0)
[2018-09-16 09:53] LABS: ALBUMIN 2.2 g/dL (3.4-5.0); ALBUMIN/GLOBULIN RATIO 0.6 (1.0-1.7); CALCIUM 7.6 mg/dL (8.5-10.1); CREATININE 1.4 mg/dL (0.7-1.3); GFR 50.9; POTASSIUM 3.5 mmol/L (3.5-5.1); TOTAL BILIRUBIN 1.6 mg/dL (0.2-1.0)
[2018-09-16 11:54] VITALS: BP 149/82
[2018-09-16] MEDS ORDERED: SIMETHICONE ORAL DROPS 40 MG/0.6 ML 30ml BOTTLE. PO PRN (13:15)
[2018-09-16 16:14] VITALS: BP 132/78
[2018-09-16 19:30] VITALS: BP 132/75
[2018-09-16 22:30] VITALS: BP 124/77
[2018-09-17] MEDS: METOCLOPRAMIDE HCL 10 MG/2 ML VIAL. IV SCH ×4 (00:45→17:14)
[2018-09-17] MEDS: HYDROmorphone PF 1 MG/ML DISP.SYRIN IV PRN ×2 (00:46→02:43)
[2018-09-17 05:32] VITALS: BP 129/75
[2018-09-17] MEDS: PIPERACILLIN/TAZOBACTAM 2.25 GM in IV NORMAL SALINE 50ML 50 ML IV SCH ×3 (06:06→23:30)
[2018-09-17 07:16] LABS: BASO % 0 % (0-3); EOS % 0 % (0-3); HEMATOCRIT 37.1 % (39.0-53.0); HEMOGLOBIN 12.4 g/dL (13.0-17.5); LYMPH # 0.6 x10^3/uL (1.0-4.8); LYMPH % 7 % (24-48); MEAN CORPUSCULAR HEMOGLOBIN 31 pg (25-35); MEAN CORPUSCULAR HGB CONC 34 g/dL (31-37); MEAN CORPUSCULAR VOLUME 93 fL (79-100); MONO # 0.7 x10^3/uL (0.0-1.1); MONO % 9 % (0-9); NEUT # 7.1 x10^3uL (1.8-7.7); NEUT % 84 % (31-73); PLATELET COUNT 136 x10^3/uL (140-400); RED BLOOD COUNT 3.99 x10^6/uL (4.30-5.70); RED CELL DISTRIBUTION WIDTH 15.8 % (11.5-14.5); WHITE BLOOD COUNT 8.4 x10^3/uL (4.0-11.0)
[2018-09-17 07:37] LABS: ALBUMIN/GLOBULIN RATIO 0.5 (1.0-1.7); CALCIUM 8.1 mg/dL (8.5-10.1); CREATININE 1.4 mg/dL (0.7-1.3); DIRECT BILIRUBIN 1.2 mg/dL (0.0-0.2); GFR 50.9; POTASSIUM 3.4 mmol/L (3.5-5.1); TOTAL BILIRUBIN 1.7 mg/dL (0.2-1.0); TOTAL PROTEIN 5.9 g/dL (6.4-8.2)
[2018-09-17] MEDS: ONDANSETRON PF 4 MG/2 ML VIAL. IV PRN (08:35)
[2018-09-17] MEDS: INSULIN LISPRO 300 UNITS/3 ML INSULN.PEN. SQ SCH ×3 (08:36→17:00)
[2018-09-17] MEDS: LACTOBACILLUS RHAMNOSUS GG 1 CAPSULE. PO SCH ×2 (08:36→22:02)
[2018-09-17] MEDS ORDERED: HYDROmorphone 2 MG TABLET PO PRN (09:00)
--- NOTE | 2018-09-17 09:00 | PDOC ---
SUBJECTIVE: Cc: Abdominal pain Less distended passing gas OBJECTIVE: Problems: Problems Medical Problems: (1) Acute pancreatitis Status: Acute Labs noted Vital Signs: Vital Signs Date Time Temp Pulse Resp B/P (MAP) Pulse Ox O2 Delivery O2 Flow Rate FiO2 09/17/18 05:32 97.9 106 18 129/75 (93) 93 Room Air 09/16/18 18:44 2.0 I & O Intake and Output 09/17/18 07:00 Intake Total 4702 ml Output Total 752 ml Balance 3950 ml Intake Oral 880 ml IV Total 3822 ml Output Urine Total 752 ml Labs: Laboratory Tests Test 09/15/18 11:52 09/15/18 16:52 09/15/18 20:39 09/16/18 08:01 Glucose (Fingerstick) 169 mg/dL (70-99) 172 mg/dL (70-99) 165 mg/dL (70-99) 179 mg/dL (70-99) Test 09/16/18 09:22 09/16/18 12:18 09/16/18 17:08 09/16/18 20:22 White Blood Count 8.5 x10^3/uL (4.0-11.0) Red Blood Count 4.15 x10^6/uL (4.30-5.70) Hemoglobin 12.9 g/dL (13.0-17.5) Hematocrit 38.9 % (39.0-53.0) Mean Corpuscular Volume 94 fL (79-100) Mean Corpuscular Hemoglobin 31 pg (25-35) Mean Corpuscular Hemoglobin Concent 33 g/dL (31-37) Red Cell Distribution Width 16.2 % (11.5-14.5) Platelet Count 127 x10^3/uL (140-400) Neutrophils (%) (Auto) 84 % (31-73) Lymphocytes (%) (Auto) 8 % (24-48) Monocytes (%) (Auto) 8 % (0-9) Eosinophils (%) (Auto) 0 % (0-3) Basophils (%) (Auto) 0 % (0-3) Neutrophils # (Auto) 7.1 x10^3uL (1.8-7.7) Lymphocytes # (Auto) 0.6 x10^3/uL (1.0-4.8) Monocytes # (Auto) 0.7 x10^3/uL (0.0-1.1) Eosinophils # (Auto) 0.0 x10^3/uL (0.0-0.7) Basophils # (Auto) 0.0 x10^3/uL (0.0-0.2) Sodium Level 134 mmol/L (136-145) Potassium Level 3.5 mmol/L (3.5-5.1) Chloride Level 98 mmol/L (98-107) Carbon Dioxide Level 23 mmol/L (21-32) Anion Gap 13 (6-14) Blood Urea Nitrogen 18 mg/dL (8-26) Creatinine 1.4 mg/dL (0.7-1.3) Estimated GFR (Cockcroft-Gault) 50.9 BUN/Creatinine Ratio 13 (6-20) Glucose Level 189 mg/dL (70-99) Calcium Level 7.6 mg/dL (8.5-10.1) Total Bilirubin 1.6 mg/dL (0.2-1.0) Aspartate Amino Transf (AST/SGOT) 32 U/L (15-37) Alanine Aminotransferase (ALT/SGPT) 51 U/L (16-63) Alkaline Phosphatase 61 U/L (46-116) Total Protein 6.0 g/dL (6.4-8.2) Albumin 2.2 g/dL (3.4-5.0) Albumin/Globulin Ratio 0.6 (1.0-1.7) Glucose (Fingerstick) 162 mg/dL (70-99) 173 mg/dL (70-99) 195 mg/dL (70-99) Test 09/17/18 06:35 09/17/18 07:45 White Blood Count 8.4 x10^3/uL (4.0-11.0) Red Blood Count 3.99 x10^6/uL (4.30-5.70) Hemoglobin 12.4 g/dL (13.0-17.5) Hematocrit 37.1 % (39.0-53.0) Mean Corpuscular Volume 93 fL (79-100) Mean Corpuscular Hemoglobin 31 pg (25-35) Mean Corpuscular Hemoglobin Concent 34 g/dL (31-37) Red Cell Distribution Width 15.8 % (11.5-14.5) Platelet Count 136 x10^3/uL (140-400) Neutrophils (%) (Auto) 84 % (31-73) Lymphocytes (%) (Auto) 7 % (24-48) Monocytes (%) (Auto) 9 % (0-9) Eosinophils (%) (Auto) 0 % (0-3) Basophils (%) (Auto) 0 % (0-3) Neutrophils # (Auto) 7.1 x10^3uL (1.8-7.7) Lymphocytes # (Auto) 0.6 x10^3/uL (1.0-4.8) Monocytes # (Auto) 0.7 x10^3/uL (0.0-1.1) Eosinophils # (Auto) 0.0 x10^3/uL (0.0-0.7) Basophils # (Auto) 0.0 x10^3/uL (0.0-0.2) Sodium Level 133 mmol/L (136-145) Potassium Level 3.4 mmol/L (3.5-5.1) Chloride Level 98 mmol/L (98-107) Carbon Dioxide Level 25 mmol/L (21-32) Anion Gap 10 (6-14) Blood Urea Nitrogen 21 mg/dL (8-26) Creatinine 1.4 mg/dL (0.7-1.3) Estimated GFR (Cockcroft-Gault) 50.9 BUN/Creatinine Ratio 15 (6-20) Glucose Level 174 mg/dL (70-99) Calcium Level 8.1 mg/dL (8.5-10.1) Total Bilirubin 1.7 mg/dL (0.2-1.0) Direct Bilirubin 1.2 mg/dL (0.0-0.2) Aspartate Amino Transf (AST/SGOT) 59 U/L (15-37) Alanine Aminotransferase (ALT/SGPT) 70 U/L (16-63) Alkaline Phosphatase 82 U/L (46-116) Total Protein 5.9 g/dL (6.4-8.2) Albumin 2.0 g/dL (3.4-5.0) Albumin/Globulin Ratio 0.5 (1.0-1.7) Glucose (Fingerstick) 180 mg/dL (70-99) Physical Exam: HEENT: PERRLA Neck supple Lungs clear CV RRR Abd: less distended, good bowel sounds EXt: trace edema Neuro: intact ASSESSMENT: Acute pancreatitis, improving Dehydration Cholelithiasis PLAN: Advance diet DC IV fluids Simethicone for gas PO dilaudid in lieu of IV dilaudid JASMYN RAMIREZ MD Sep 17, 2018 09:00
[2018-09-17 09:31] LABS: % BANDS 10 % (0-9); % BASOS 1 % (0-3); % EOS 1 % (0-5); % LYMPHS 10 % (24-48); % MONOS 4 % (0-10); % SEGS 74 % (35-66); NUCLEATED RBC 1; PLT ESTIMATE DECREASED (ADEQUATE)
[2018-09-17 09:32] LABS: TOXIC GRANULATION PRESENT; TOXIC VACUOLATION PRESENT
[2018-09-17 09:33] LABS: POLYCHROMASIA SLIGHT
[2018-09-17 11:44] VITALS: BP 165/79
[2018-09-17] MEDS: oxyCODONE IR 5 MG TABLET PO PRN ×3 (13:11→22:12)
[2018-09-17 16:19] VITALS: BP 167/74
[2018-09-17 20:09] VITALS: BP 165/78
[2018-09-17 23:36] VITALS: BP 164/82
[2018-09-18] MEDS: METOCLOPRAMIDE HCL 10 MG/2 ML VIAL. IV SCH ×4 (00:21→17:34)
[2018-09-18] MEDS: oxyCODONE IR 5 MG TABLET PO PRN ×3 (02:43→20:37)
[2018-09-18 05:46] VITALS: BP 156/84
[2018-09-18] MEDS: PIPERACILLIN/TAZOBACTAM 2.25 GM in IV NORMAL SALINE 50ML 50 ML IV SCH (05:48)
[2018-09-18] MEDS: LACTOBACILLUS RHAMNOSUS GG 1 CAPSULE. PO SCH (08:40)
[2018-09-18] MEDS: INSULIN LISPRO 300 UNITS/3 ML INSULN.PEN. SQ SCH ×3 (08:41→17:00)
[2018-09-18] MEDS ORDERED: oxyCODONE IR 5 MG TABLET PO PRN (11:00)
[2018-09-18 11:31] VITALS: BP 152/77
[2018-09-18 12:59] LABS: CALCIUM 8.2 mg/dL (8.5-10.1); CREATININE 1.6 mg/dL (0.7-1.3); GFR 43.6; POTASSIUM 3.5 mmol/L (3.5-5.1)
[2018-09-18] MEDS ORDERED: POLYETHYLENE GLYCOL 3350 17 GM PACKET. PO SCH (14:00)
--- NOTE | 2018-09-18 14:02 | RAD ---
CT ABDOMEN PELVIS WO CONTRAST Indication: Abdominal pain, pancreatitis. Exposure: One or more of the following individualized dose reduction techniques were utilized for this examination: 1. Automated exposure control 2. Adjustment of the mA and/or kV according to patient size 3. Use of iterative reconstruction technique. Comparison: September 13, 2018 Technique: No intravenous contrast given. No oral contrast per request. Findings: Evaluation of solid viscera, bowel and vasculature is compromised by the noncontrast technique. Mild atelectasis or infiltrate in the left lower lobe and to a lesser extent right lower lobe. Liver is enlarged and hypodense, similar to prior study. Spleen not enlarged. Severe swelling and edema around the pancreas with ill-defined margins has progressed since the prior study. Increase in inflammatory stranding. No evidence of an organized fluid collection although there is mild disorganized fluid around the pancreas. Perirenal fascial thickening greater on the left. No evidence of adrenal mass. There is mild fullness of the right renal collecting system which has developed since the previous exam. The ureter on the right does not appear dilated but is difficult to separate at some levels from the progressive inflammatory type changes. No evidence of obstructive calculus. Small hyperdense nodule lower pole right kidney appears stable since previous exam. Small gallstones are again identified. Gallbladder appears mildly distended. Aorta is nonaneurysmal. No evidence of pathologic lymph node enlargement. Small hiatal hernia versus mild distal esophageal distention. Wall thickening of the duodenum is again seen. The inflammatory type changes around the duodenum. No significant small bowel distention. Colonic diverticulosis, no evidence of acute colitis. The appendix appears within normal limits. No evidence of pneumoperitoneum. Urinary bladder is not distended appears grossly unremarkable. Degenerative changes of the spine without vertebral body compression fracture. IMPRESSION: 1. Severe pancreatic swelling, edema and fluid has progressed since the prior study compatible with worsening pancreatitis. 2. Duodenal wall thickening is again seen, may be secondary to the pancreatitis, versus separate duodenitis or duodenal ulcer disease. 3. Development of mild right hydronephrosis. This may be due to the increased inflammatory changes surrounding the right ureter. 4. Small hyperdense nodule at the lower pole of the right kidney is stable, could be a hemorrhagic cyst but solid mass not excludable. Could be observed on follow-up imaging. 5. Development of infiltrates/atelectasis in the lung bases, particularly on the left. 6. Hepatomegaly with steatosis. 7. Cholelithiasis. Electronically signed by: Vasquez Tuttle MD (09/18/2018 1:59 PM) [id number]
[2018-09-18 15:25] VITALS: BP 145/80
[2018-09-18] MEDS: ONDANSETRON PF 4 MG/2 ML VIAL. IV PRN (17:29)
[2018-09-18] MEDS ORDERED: CALCIUM CARBONATE 500 MG TAB.CHEW PO PRN (18:30)
[2018-09-18 18:58] VITALS: BP 160/79
--- NOTE | 2018-09-18 19:51 | PN ---
DATE: 09/18/2018 SUBJECTIVE: The patient is resting slightly propped up in bed, in no apparent distress. He is awake, alert, continued to have some nausea, but no vomiting, and abdominal bloating. He has not had any bowel movement since 09/12/2018. PHYSICAL EXAMINATION: GENERAL: When I examined him, he looked well and was clearly in no apparent respiratory distress. No pallor, jaundice, cyanosis, or thyromegaly. No jugular venous distension. No lower limb edema. VITAL SIGNS: His heart rate was 111, blood pressure was 152/77, temperature was 98, respiratory rate was 20, and oxygen saturation was 94% on room air. HEAD, EYES, EARS, NOSE AND THROAT: Showed normocephalic, atraumatic. NECK: Supple. HEART: Showed normal first and second heart sounds. No gallop, rub or murmur. CHEST: Shows central trachea, equal bilateral chest expansion, air entry, vesicular sounds. No crepitation or rhonchi. ABDOMEN: Distended, soft, nontender. There is no guarding or rigidity. No organomegaly. All hernial orifices intact. Bowel sounds normal. NEUROLOGIC: He is awake, alert, responding appropriately. All cranial nerves intact. He moves extremities without difficulty. His intake over the last 24 hours was 4750, output was 750. LABORATORY DATA: As of this morning showed a serum sodium of 132, potassium 3.5, chloride 95, bicarbonate 25, anion gap of 12, BUN 24, creatinine 1.6, estimated GFR was 43 mL per minute. His blood glucose 177, calcium was 8.2 and serum lipase was 87. ASSESSMENT: 1. Acute pancreatitis, resolved. His serum lipase came down from 50,000 to 75. 2. Acute kidney injury, resolving. His creatinine has risen slightly up from 1.4-1.6. 3. Cholelithiasis without acute cholecystitis. 4. He has severe constipation and apparently had not had any bowel movement for the last 6 days. Other medical problems include, A. Type 2 diabetes mellitus. B. Hypertension. C. Hyperlipidemia. D. Coronary artery disease, status post stent deployment about 10 years ago. E. Atrial fibrillation. F. Chronic kidney disease. G. The patient also known to have fatty liver and diverticulosis, DVT and pulmonary emboli as well as gout. He is known to have obstructive sleep apnea, on CPAP. PLAN: My plan is to repeat his CT scan of the abdomen and pelvis, repeat his labs and in fact his lipase was down to 75 this afternoon. He might require Relistor together with stool softeners and hopefully discharge him home tomorrow. AGUILA LAM MD DR: WILL/jenny JOB#: [id number] / [id number]
--- NOTE | 2018-09-18 20:40 | DS ---
DATE OF DISCHARGE: 09/18/2018 HOSPITAL COURSE: The patient is a 63-year-old male patient who was admitted originally on 09/12/2018 with severe abdominal pain and that he rated about 9/10 in severity, started approximately 2 hours prior to arrival to the Emergency Room. He stated that he has never had symptoms like that and he was extensively investigated in the Emergency Room and was found to have markedly elevated lipase, in fact, his serum lipase was 50,000. His CT scan of the abdomen showed edema and free fluid adjacent to the pancreas, which can be seen with pancreatitis. There is also some edema and wall thickening of the duodenum. This could be secondary to inflammation from pancreatitis, superimposed duodenitis, duodenal ulcer and possible his free fluid adjacent to the pancreas and duodenum. The patient was kept n.p.o., started him on IV fluid, IV pain medication and his serum lipase has steadily came down from 50,000-75; however, the patient continued to complain of abdominal pain and had been unable to advance his diet as he continued to have nausea and vomiting and we did repeat CT scan today, which basically showed that there is severe pancreatic swelling, edema and fluid that has progressed since the prior study compatible with worsening pancreatitis. He has no abdominal wall thickening is again seen, may be secondary to the pancreatitis versus separate duodenitis, duodenal ulcer disease, development of mild right-sided hydronephrosis and given that the patient does not really improving, I contacted [facility] and spoke with Dr. Brady Catherine, who kindly accepted him for transfer to be evaluated by the gastroenterology team. PHYSICAL EXAMINATION: GENERAL: When I saw him today, he looked well and was clearly in no apparent respiratory distress. No pallor, jaundice, cyanosis, or thyromegaly. No jugular venous distension. No lower limb edema. VITAL SIGNS: His heart rate was 115, blood pressure was 145/80, temperature was 98.7, respiratory rate was 20 and oxygen saturation was 95% on room air. HEENT: Examination of the head, eyes, ears, nose and throat showed normocephalic, atraumatic. NECK: Supple. HEART: Showed normal first and second heart sounds. No gallop, rub or murmur. CHEST: Shows central trachea, equal bilateral expansion, air entry, vesicular breath sounds. No crepitation or rhonchi. ABDOMEN: Distended. Tenderness is mostly in the right upper quadrant. There is no guarding or rigidity. No organomegaly. All hernial orifices are intact. Bowel sounds normal. NEUROLOGIC: He is awake, alert, responding appropriately. All his cranial nerves are intact. EXTREMITIES: He moves extremities without difficulty. He ambulates without assistance or assistive devices. His intake over the last 24 hours was 4715 and output was only 750. LABORATORY DATA: Her lab work this morning showed his serum sodium of 132, potassium 3.5, chloride 95, bicarbonate 25, anion gap of 12, BUN 24, creatinine 1.6, estimated GFR was 44 mL per minute. His glucose 177, calcium was 8.2 and lipase was 87. Urinalysis is unremarkable. White cell count was 8400, hemoglobin 12, hematocrit 37, MCV 93 and platelet count of 136. DISCHARGE MEDICATIONS: He was discharged to [facility] to continue on Colace 100 mg twice a day, polyethylene glycol 17 grams daily, oxycodone 5-10 mg every 4 hours as needed, simethicone 40 mg 4 times a day, lactobacillus rhamnosus 1 capsule twice a day. He is on insulin sliding scale before meals, ondansetron 4 mg every 6 hours and metoclopramide 10 mg IV q. 6 hourly and Zosyn 2.25 grams IV q. 8 hourly. FINAL DISCHARGE DIAGNOSES: 1. Acute pancreatitis with the most likely cause is fenofibrate, Trulicity and alcohol. 2. Other medical problems include, A. Type 2 diabetes mellitus. B. Hypertension. C. Hyperlipidemia. D. Coronary artery disease, status post stent deployment about 10 years ago. E. Atrial fibrillation, rate controlled, not anticoagulated. F. Chronic kidney disease. G. Fatty liver. I. Diverticulosis. K. History of deep vein thrombosis and pulmonary emboli. He is also known to have obstructive sleep apnea, on CPAP. AGUILA LAM MD DR: WILL/jenny JOB#: [id number] / [id number]
[2018-09-18] MEDS ORDERED: DOCUSATE SODIUM 100 MG CAPSULE PO SCH (21:00)
== END 2018-09-18 20:45 | disposition short-term general hospital (02) | DRG 439 ==
LOC: ER 23:10 → 1 SOUTH 09-13 03:47
PROVIDERS: ADMIT Internal Medicine; ATTEND Internal Medicine
PROC: 5A09357 Assistance with Respiratory Ventilation, Less than 24 Consecutive Hours, Continuous Positive Airway Pressure (ICD-10-PCS; principal; 2018-09-13)
PROC: 5A09357 Assistance with Respiratory Ventilation, Less than 24 Consecutive Hours, Continuous Positive Airway Pressure (ICD-10-PCS; 2018-09-14)
PROC: 5A09357 Assistance with Respiratory Ventilation, Less than 24 Consecutive Hours, Continuous Positive Airway Pressure (ICD-10-PCS; 2018-09-15)
PROC: 5A09357 Assistance with Respiratory Ventilation, Less than 24 Consecutive Hours, Continuous Positive Airway Pressure (ICD-10-PCS; 2018-09-16)
PROC: 5A09357 Assistance with Respiratory Ventilation, Less than 24 Consecutive Hours, Continuous Positive Airway Pressure (ICD-10-PCS; 2018-09-17)
PROC: 5A09357 Assistance with Respiratory Ventilation, Less than 24 Consecutive Hours, Continuous Positive Airway Pressure (ICD-10-PCS; 2018-09-18)
DX: K85.90 Acute pancreatitis without necrosis or infection, unspecified (principal); N17.9 Acute kidney failure, unspecified; E87.0 Hyperosmolality and hypernatremia; K56.7 Ileus, unspecified; E11.22 Type 2 diabetes mellitus with diabetic chronic kidney disease; E66.9 Obesity, unspecified; E78.00 Pure hypercholesterolemia, unspecified; E78.5 Hyperlipidemia, unspecified; E86.0 Dehydration; G47.33 Obstructive sleep apnea (adult) (pediatric); I12.9 Hypertensive chronic kidney disease with stage 1 through stage 4 chronic kidney disease, or unspecified chronic kidney disease; I25.10 Atherosclerotic heart disease of native coronary artery without angina pectoris; I48.91 Unspecified atrial fibrillation; K57.90 Diverticulosis of intestine, part unspecified, without perforation or abscess without bleeding; K76.0 Fatty (change of) liver, not elsewhere classified; K80.20 Calculus of gallbladder without cholecystitis without obstruction; N18.9 Chronic kidney disease, unspecified; Z96.653 Presence of artificial knee joint, bilateral; T46.6X5A Adverse effect of antihyperlipidemic and antiarteriosclerotic drugs, initial encounter; T50.995A Adverse effect of other drugs, medicaments and biological substances, initial encounter; Z82.0 Family history of epilepsy and other diseases of the nervous system; Z82.5 Family history of asthma and other chronic lower respiratory diseases; Z86.711 Personal history of pulmonary embolism; Z86.718 Personal history of other venous thrombosis and embolism; Z87.891 Personal history of nicotine dependence; Z95.5 Presence of coronary angioplasty implant and graft; Y92.89 Other specified places as the place of occurrence of the external cause; Z68.35 Body mass index [BMI] 35.0-35.9, adult
CPT/HCPCS: 36415; 74176; 76700; 80048; 80053; 80061; 81001; 82248; 82947; 83690; 84484; 85007; 85025; 85027; 93005; 96361; 96365; 96375; 96376; J1170; J1200; J1815; J2405; J2543; J2765; 99285-25; J7030